=== PATIENT | male | born 1990 | race Two or more races ===

== ENCOUNTER 2024-04-19 17:03 | Emergency (ER) | payer MEDICAID, OTHER ==
[~2024-04-19] VITALS: Ht 172.7 cm; Wt 102.3 kg
[~2024-04-19 17:03] MED LIST: CIPR-173 PO; METR500T PO
[2024-04-19 18:05] LABS: Basophils # (auto) 0.1 10 ^3/uL (0-0.2); Basophils % (auto) 0.6 % (0.0-2.0); Eosinophils # (auto) 0.5 10 ^3/uL (0-0.8); Eosinophils % (auto) 5.4 % (0.0-7.0); Hematocrit 39.8 % (41.0-53.0); Hemoglobin 13.5 g/dL (13.5-17.5); Lymphocytes # (auto) 2.8 10 ^3/uL (0.4-5.4); Lymphocytes % (auto) 32.7 % (10.0-50.0); Mean Corpuscular Hemoglobin 29.1 pg (28.0-32.0); Mean Corpuscular Hgb Conc. 34.1 g/dL (32.0-36.0); Mean Corpuscular Volume 85.5 fL (80.0-100.0); Monocytes # (auto) 0.5 10 ^3/uL (0-1.3); Monocytes % (auto) 5.9 % (0.0-12.0); Neutrophils # (auto) 4.7 10 ^3/uL (1.6-8.6); Neutrophils % (auto) 55.4 % (37.0-80.0); Nucleated Red Blood Cells % 0.1 %; Red Blood Cells 4.65 10^6/uL (4.5-5.90); Red Cell Distribution Width 13.4 % (11.8-14.3); White Blood Cell 8.5 10^3/uL (4.4-10.8)
[2024-04-19 18:26] LABS: Alanine Aminotransferase 59 U/L (7-40); Albumin 4.4 g/dL (3.2-4.8); Alkaline Phosphatase 95 U/L (46-116); Anion Gap 6 (5-15); Aspartate Aminotransferase 28 U/L (13-40); BUN/Creatinine Ratio 11.8 (10.0-20.0); Bilirubin, Total 0.5 mg/dL (0.2-1.0); Blood Urea Nitrogen 11 mg/dL (9-23); Calcium 9.9 mg/dL (8.5-10.1); Carbon Dioxide 27 mmol/L (20-30); Chloride 106 mmol/L (98-107); Glucose 119 mg/dL (74-106); Potassium 4.1 mmol/L (3.5-5.1); Sodium 139 mmol/L (136-145); Total Protein 8.3 g/dL (5.7-8.2)
[2024-04-19] MEDS: TETANUS-DIPTH-ACEL PERTUSSIS 0.5ML SYR Tdap IM ONE (19:00)
[2024-04-19] MEDS ORDERED: CEPH500C PO (19:37)
[2024-04-19 21:08] VITALS: BP 161/71; PULSE 87; RESP 20; TEMP 98; O2SAT 96
[2024-04-19] MEDS: cefTRIAXone SOD 1,000 MG VL IM ONE (21:35)
[2024-04-19] MEDS: KETOROLAC TROMETH 60MG/2ML VIAL IM ONE (21:36)
== END 2024-04-19 21:46 | disposition home or self-care (01) ==
LOC: ER 17:07
DX: L08.9 Local infection of the skin and subcutaneous tissue, unspecified (principal); E66.01 Morbid (severe) obesity due to excess calories; F12.10 Cannabis abuse, uncomplicated; F19.10 Other psychoactive substance abuse, uncomplicated; Z68.34 Body mass index [BMI] 34.0-34.9, adult
CPT/HCPCS: 36415; 80053; 83605; 85025; 87040; 96372; 99284; J0696; J1885

== ENCOUNTER 2025-06-20 11:11 | Inpatient (IN) | payer OTHER ==
[~2025-06-20] VITALS: Ht 175.3 cm; Wt 118.0 kg
[~2025-06-20 11:11] MED LIST changes: +CEPH500C PO
[2025-06-20] MEDS ORDERED: fentaNYL CITRATE 100 MCG/2 ML VL IV ONE (11:30)
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
[2025-06-20 12:25] LABS: Hematocrit 35.4 % (41.0-53.0); Hemoglobin 11.7 g/dL (13.5-17.5); Mean Corpuscular Hemoglobin 26.0 pg (28.0-32.0); Mean Corpuscular Volume 78.5 fL (80.0-100.0); Nucleated Red Blood Cells % 0.1 %
[2025-06-20 12:32] LABS: INR 1.08 (0.9-1.15); Partial Thromboplastin Time 21.6 SEC (24.5-34.5); Prothrombin Time 11.4 sec (9.3-11.8)
--- NOTE | 2025-06-20 12:36 | DVH ---
INDICATION: Possible sepsis TECHNIQUE: Frontal view of the chest. COMPARISON: None FINDINGS: . The heart and mediastinal contours are grossly unremarkable. There is no evidence of pleural disea se. The lungs are clear. The bony structures of the chest are intact without fracture. IMPRESSION: 1. No evidence of acute disease.
--- NOTE | 2025-06-20 12:36 | DVH ---
INDICATION: Severe lower back pain TECHNIQUE: Frontal and lateral views of the lumbar spine were obtained. COMPARISON: None FINDINGS: . There are no fractures or subluxations. Vertebral body heights and disc spaces are well m aintained. Paravertebral soft tissues are unremarkable. IMPRESSION: 1. Of the visualized spine, there is no evidence for fracture or subluxation.
[2025-06-20 12:42] LABS: Lactic Acid w/Reflex 2.2 mmol/L (0.4-2.0)
[2025-06-20] MEDS ORDERED: CEFEPIME 1GM/ 50ML 50 ML IV ONE (13:00)
[2025-06-20 13:30] VITALS: PULSE 88; RESP 12; O2SAT 96
[2025-06-20] MEDS: fentaNYL CITRATE 100 MCG/2 ML VL IM ONE (15:01)
[2025-06-20] MEDS: CEFEPIME 1GM/ 50ML 50 ML IV ONE (15:25)
[2025-06-20 15:55] LABS: Alanine Aminotransferase 34 U/L (7-40); Albumin 3.8 g/dL (3.2-4.8); Anion Gap 9 (5-15); BUN/Creatinine Ratio 9.9 (10.0-20.0); Carbon Dioxide 26 mmol/L (20-31); Chloride 101 mmol/L (98-107); Glucose 90 mg/dL (74-106); Potassium 4.5 mmol/L (3.5-5.1)
[2025-06-20 15:56] LABS: Alkaline Phosphatase 128 U/L (46-116); Bilirubin, Total 0.4 mg/dL (0.2-1.0); Blood Urea Nitrogen 9 mg/dL (9-23); Calcium 8.7 mg/dL (8.7-10.4); Sodium 136 mmol/L (136-145); Total Protein 8.5 g/dL (5.7-8.2)
[2025-06-20] MEDS: LACTATED RINGER'S 2,100 ML IV ONE (16:19)
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
[2025-06-20] MEDS ORDERED: VANCOMYCIN PER PHARMACY 0 MG IV SCH (17:30)
[2025-06-20] MEDS ORDERED: ACETAMINOPHEN 325 MG TAB PO PRN (17:30)
[2025-06-20] MEDS ORDERED: DOCUSATE SOD 100 MG CAP PO PRN (17:30)
[2025-06-20] MEDS: ONDANSETRON HCL 4 MG/2 ML VIAL IV PRN (18:34)
[2025-06-20] MEDS: HYDROmorphone HCL 2 MG/ML VL/or syr IV PRN (18:34)
[2025-06-20] MEDS: VANCOMYCIN 1GM/250ML KIT 250 ML IV SCH (18:35)
[2025-06-20] MEDS: SODIUM CHLORIDE 0.9% 1,000 ML IV ONE (18:35)
[2025-06-20 20:01] VITALS: BP 105/50; PULSE 85; RESP 20; TEMP 98.2; O2SAT 96
[2025-06-20] MEDS: CEFEPIME 1GM/ 50ML 50 ML IV SCH (21:11)
[2025-06-20] MEDS: SODIUM CHLOR 0.9% PF (SALINE LOCK) 10ML VIAL/SYR IV SCH (21:20)
[2025-06-20] MEDS ORDERED: PIPERACILLIN-TAZOB 3.375GM 100 ML IV SCH (22:00)
[2025-06-21 01:00] VITALS: BP 107/60; PULSE 88; RESP 16; TEMP 98; O2SAT 97
[2025-06-21 02:20] VITALS: PULSE 84; RESP 20; O2SAT 93
[2025-06-21] MEDS: PIPERACILLIN-TAZOB 3.375GM 100 ML IV SCH (03:18)
[2025-06-21 05:00] VITALS: BP 115/70; PULSE 84; RESP 20; TEMP 99.6; O2SAT 96
[2025-06-21] MEDS: HYDROcodone-ACET 5/325MG TAB PO PRN (06:02)
[2025-06-21 07:38] LABS: Alanine Aminotransferase 30 U/L (7-40); Albumin 3.4 g/dL (3.2-4.8); Anion Gap 11 (5-15); BUN/Creatinine Ratio 8.0 (10.0-20.0); Carbon Dioxide 23 mmol/L (20-31); Chloride 102 mmol/L (98-107); Glucose 83 mg/dL (74-106); Potassium 4.3 mmol/L (3.5-5.1); Sodium 136 mmol/L (136-145)
[2025-06-21 07:41] LABS: Alkaline Phosphatase 122 U/L (46-116); Bilirubin, Total 0.2 mg/dL (0.2-1.0); Blood Urea Nitrogen 7 mg/dL (9-23); Calcium 8.4 mg/dL (8.7-10.4); Total Protein 8.6 g/dL (5.7-8.2)
[2025-06-21 09:00] VITALS: BP 108/68; PULSE 84; RESP 16; TEMP 97.3; O2SAT 93
[2025-06-21] MEDS: ENOXAPARIN SOD 40 MG/0.4 ML SYRINGE SC SCH (09:58)
[2025-06-21 10:11] VITALS: BP 108/68; PULSE 84; RESP 16
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
== END 2025-06-21 13:20 | disposition left against medical advice (07) | DRG 720 ==
LOC: ER 11:11 → OVERFLOW 17:21 → WEST WING 23:10
PROVIDERS: ADMIT Nurse Practitioner Acute Care; ATTEND Nurse Practitioner Acute Care
DX: A41.9 Sepsis, unspecified organism (principal); E66.9 Obesity, unspecified; Z68.38 Body mass index [BMI] 38.0-38.9, adult; L03.113 Cellulitis of right upper limb; L03.114 Cellulitis of left upper limb; Z53.29 Procedure and treatment not carried out because of patient's decision for other reasons
CPT/HCPCS: 36415; 71045; 72100; 80053; 83605; 85025; 85610; 85652; 85730; 86141; 87040; 87077; 87186; 87205; 96365; 96372; G0378; J2405; J2543

== ENCOUNTER 2025-06-27 21:04 | Emergency (ER) | payer OTHER ==
[~2025-06-27] VITALS: Ht 172.7 cm; Wt 116.0 kg
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
[2025-06-27 23:10] LABS: Hematocrit 31.3 % (41.0-53.0); Hemoglobin 10.4 g/dL (13.5-17.5); Mean Corpuscular Hemoglobin 25.1 pg (28.0-32.0); Mean Corpuscular Volume 75.8 fL (80.0-100.0); Nucleated Red Blood Cells % 0.0 %
[2025-06-27 23:26] LABS: Chloride 100 mmol/L (98-107); Potassium 4.1 mmol/L (3.5-5.1)
--- NOTE | 2025-06-27 23:26 | DVH ---
EXAMINATIONS: 2 views of the lumbar spine CLINICAL HISTORY: pain COMPARISON: XY LUMBAR SPINE 3 VIEW on DOS: 06/20/25 Findings and impression: Subtle lumbar levoscoliosis may be positional or related to muscular spasm. Otherwise no grossly displaced fractures or subluxations are evident on the provided views. Vertebral body heights are maintained. If symptoms persist, follow-up MRI may be considered to further evaluate.
[2025-06-27 23:27] LABS: Anion Gap 9 (5-15); Calcium 9.0 mg/dL (8.7-10.4); Carbon Dioxide 26 mmol/L (20-31); Sodium 135 mmol/L (136-145)
[2025-06-27 23:32] LABS: BUN/Creatinine Ratio 11.1 (10.0-20.0)
[2025-06-27 23:42] LABS: Blood Urea Nitrogen 9 mg/dL (9-23); Glucose 112 mg/dL (74-106)
[2025-06-28 01:10] VITALS: BP 138/69; PULSE 108; RESP 20; TEMP 98.3; O2SAT 96
[2025-06-28 01:28] LABS: Urine Protein, UAD TRACE (Negative)
[2025-06-28 02:09] LABS: Amphetamine Screen, Urine Neg (NEGATIVE)
[2025-06-28 02:12] LABS: Barbiturate Scree,Urine Neg (NEGATIVE); Benzodiazephine Screen, Urine Neg (NEGATIVE); Opiate Scree,Urine Neg (NEGATIVE); Phencyclidine Screen, Urine Neg (NEGATIVE)
[2025-06-28 02:13] LABS: Cannabinoid Screen, Urine Neg (NEGATIVE); Cocaine Screen, Urine Neg (NEGATIVE)
== END 2025-06-28 01:20 | disposition home or self-care (01) ==
LOC: EDBD 21:04 → ER 21:04 → EDUNIT# 21:04 → ER 06-28 01:20
DX: M54.50 Low back pain, unspecified (principal); G89.29 Other chronic pain; F12.90 Cannabis use, unspecified, uncomplicated; F10.920 Alcohol use, unspecified with intoxication, uncomplicated; V89.2XXA Person injured in unspecified motor-vehicle accident, traffic, initial encounter; Y93.89 Activity, other specified; Y92.488 Other paved roadways as the place of occurrence of the external cause; Y99.8 Other external cause status; Y90.9 Presence of alcohol in blood, level not specified
CPT/HCPCS: 36415; 72100; 80048; 80307; 81001; 83605; 85025